=== PATIENT | male | born 1985 | race Caucasian/White ===

== ENCOUNTER 2019-07-12 20:35 | Emergency (ER) | payer SELFPAY ==
[~2019-07-12] VITALS: Ht 175.3 cm; Wt 77.1 kg
[2019-07-12 20:43] VITALS: Ht 175.3 cm; Wt 77.1 kg
[2019-07-12 22:56] VITALS: BP 111/74
== END 2019-07-12 22:56 | disposition home or self-care (01) ==
LOC: ED 20:35
DX: F10.120 Alcohol abuse with intoxication, uncomplicated (principal); E11.9 Type 2 diabetes mellitus without complications; Z91.030 Bee allergy status
CPT/HCPCS: 82962